=== PATIENT | male | born 2000 | race Caucasian/White ===

== ENCOUNTER 2024-11-05 09:22 | Emergency (ER) | payer OTHER ==
[~2024-11-05] VITALS: Ht 182.9 cm; Wt 84.5 kg
[2024-11-05 10:23] LABS: PLATELET COUNT, AUTOMATED 150 10^3/uL (150-450)
[2024-11-05 10:44] LABS: AMPHETAMINES LEVEL URINE NEGATIVE (NEGATIVE); BARBITURATES URINE NEGATIVE (NEGATIVE); BENZODIAZEPINES URINE NEGATIVE (NEGATIVE); CANNABINOIDS URINE NEGATIVE (NEGATIVE); COCAINE METABOLITE URINE NEGATIVE (NEGATIVE); METHADONE URINE NEGATIVE (NEGATIVE); OPIATES URINE NEGATIVE (NEGATIVE)
[2024-11-05 10:46] LABS: ETHYL ALCOHOL (ETHANOL) < 0.003 % (0.000-0.010)
[2024-11-05 10:47] LABS: SALICYLATE LEVEL < 3.0 MG/DL (<30)
[2024-11-05 10:48] LABS: ALT/SGPT 16 U/L (7.0-40); AST/SGOT 13 U/L (<34); CALCIUM LEVEL 9.9 MG/DL (8.5-10.1); CARBON DIOXIDE LEVEL 28 MMOL/L (20-31); CHLORIDE LEVEL 106 MMOL/L (98-107); CREATININE FOR GFR 1.10 MG/DL (0.70-1.30); GLOMERULAR FILTRATION RATE > 90.0 (>60); POTASSIUM SERUM 4.1 MMOL/L (3.5-5.1); SODIUM LEVEL 144 MMOL/L (136-145)
[2024-11-05 11:17] LABS: PHENCYCLIDINE URINE NEGATIVE (NEGATIVE)
[2024-11-05 13:28] VITALS: BP 129/80; TEMP 97.9; O2SAT 97
== END 2024-11-05 13:30 | disposition home or self-care (01) ==
LOC: M ED 09:22
DX: F43.0 Acute stress reaction (principal)